=== PATIENT | female | born 1980 | race Caucasian/White ===

== ENCOUNTER 2022-01-31 11:34 | Observation (INO) ==
[2022-01-31 11:42] VITALS: BMI 28.3
--- NOTE | 2022-01-31 12:21 | DR.GENAD ---
HPI Time Seen Time Seen by Provider: 01/31/22 12:20 PCP Primary Care Physician: LORRIE Complaint/Symptoms Chief Complaint:: PATIENT STATES SHE WAS IN [place] ON A TRIP AND HAD AN AREA APPEAR TO THE LEFT SIDE OF HER NECK. PT. WENT TO A CLINIC THERE AND THEY TOLD HER SHE HAD A TUMOR THAT IS AFFECTING HER TRACHEA AND THAT SHE WAS SEPTIC. PT. STATES SHE HAD IV ANTIBIOTICS WHILE IN [facility]. PT. C/O PAIN AND SWELLING TO LEFT SIDE OF NECK. AREA STARTED DRAINING MONDAY. PT. STATES SHE WAS RUNNING A HIGH TEMPERATURE OF 104 AT ONSET OF SYMPTOMS. PT. STATES SHE HURTS ALL OVER AND JUST FEELS BAD. SHE C/O FATIGUE. COVID-19 Coronavirus risk:travel/contact w/high risk person: No Has patient experienced Coronavirus symptoms: Yes Coronavirus symptoms experienced: Fever Source History Provided: Patient Mode of Arrival Mode of Arrival: Ambulatory Timing Onset of Chief Complaint: 01/26/22 PMH PMH Past Medical History: Yes Past Medical History: Arthritis, Migraines, GERD, Hypertension and PUD Past Surgical History: Yes Surgical History: Hysterectomy and Other Past Surgical History Comment: RIGHT ANKLE/FOOT, BLADDER TACT Family History History of Family Medical Conditions: Yes Family Medical History: Cancer, [place] and Hypertension Social History Does patient currently use any type of tobacco product: Yes Have you used tobacco products in the last 12 months: Yes Type of Tobacco Use: Cigarettes Does any household member use tobacco: No Alcohol Use: None Do you use any recreational Drugs:: No Lives With: Family Lives Where: Home Travel Risk Coronavirus risk:travel/contact w/high risk person: No Has patient experienced Coronavirus symptoms: Yes Coronavirus symptoms experienced: Fever Infectious screening In the last 2 months have you had wt loss of >10#?: NO Have you had fever, night sweats or hemotysis?: No Have you traveled outside the country in the last 6 months?: No Isolation: Standard PE Vital Signs Vitals: Temperature 97.7 F Pulse Rate 77 Respiratory Rate 18 Blood Pressure 115/72 O2 Sat by Pulse Oximetry 94 ROR Labs Reviewed Result Diagrams: 01/31/22 12:30 01/31/22 12:12 Laboratory: 01/31/22 12:09 Neck Wound Gram Stain - Final WBC 5.0 X10^3/uL (3.6-10.0) 01/31/22 12:30 RBC 3.64 X10^6/uL (3.5-5.4) 01/31/22 12:30 Hgb 11.5 g/dL (12.0-16.0) L 01/31/22 12:30 Hct 32.9 % (36.0-47.0) L 01/31/22 12:30 MCV 90.4 fL (80.0-100.0) 01/31/22 12: MCH 31.5 pg (27.0-34.0) 01/31/22 12:30 MCHC 34.9 g/dL (33.0-35.0) 01/31/22 12: RDW 13.3 % (11.6-16.5) 01/31/22 12: Plt Count 496 X10^3/uL (150.0-450.0) H 01/31/22 12:30 MPV 6.6 fL (7.4-11.0) L 01/31/22 12:30 Neut % (Auto) 48.3 % (42.0-75.0) 01/31/22 12:30 Lymph % (Auto) 40.3 % (21.0-51.0) 01/31/22 12:30 Lander % (Auto) 6.7 % (0.0-13.0) 01/31/22 12: Eos % (Auto) 3.5 % (0.9-2.9) H 01/31/22 12:30 Baso % (Auto) 1.2 % (0.2-1.0) H 01/31/22 12:30 Neut # (Auto) 2.4 x10^3/uL (2.2-4.8) 01/31/22 12:30 Lymph # (Auto) 2.0 X10^3/uL (1.3-2.9) 01/31/22 12:30 Lander # (Auto) 0.3 x10^3/uL (0.3-0.8) 01/31/22 12:30 Eos # (Auto) 0.2 x10^3/uL (0.0-0.2) 01/31/22 12:30 Baso # (Auto) 0.1 X10^3/uL (0.0-0.1) 01/31/22 12:30 Absolute Nucleated RBC 0.0 /100WBC 01/31/22 12:30 Sodium 138 mmol/L (136-145) 01/31/22 12:12 Corrected Sodium TNP 01/31/22 12:12 Potassium 3.8 mmol/L (3.5-5.1) 01/31/22 12:12 Chloride 101 mmol/L (98-107) 01/31/22 12:12 Carbon Dioxide 27.8 mmol/L (21-32) 01/31/22 12:12 BUN 11 mg/dL (7-18) 01/31/22 12:12 Creatinine 1.01 mg/dL (0.55-1.02) 01/31/22 12:12 Est GFR (MDRD) Af Amer > 60 (>60) 01/31/22 12:12 Est GFR (MDRD) Non-Af > 60 (>60) 01/31/22 12:12 Glucose 92 mg/dL (65-99) 01/31/22 12:12 Lactic Acid 0.9 mmol/L (0.4-2.0) 01/31/22 12:12 Calcium 8.4 mg/dL (8.5-10.1) L 01/31/22 12:12 Corrected Calcium 9.1 mg/dL (8.5-10.1) 01/31/22 12:12 Total Bilirubin 0.10 mg/dL (0.2-1.0) L 01/31/22 12:12 AST 16 Units/L (15-37) 01/31/22 12:12 ALT 18 Units/L (12-78) 01/31/22 12:12 Alkaline Phosphatase 70 Units/L (46-116) 01/31/22 12:12 Total Protein 7.8 g/dL (6.4-8.2) 01/31/22 12:12 Albumin 3.1 g/dL (3.4-5.0) L 01/31/22 12:12 Globulin 4.7 g/dL (2.5-4.5) H 01/31/22 12:12 Albumin/Globulin Ratio 0.7 Ratio (1.1-2.1) L 01/31/22 12:12 Specimen Type Clean catch urine 01/31/22 14:28 Urine Color Yellow (YELLOW) 01/31/22 14:28 Urine Appearance Clear (CLEAR) 01/31/22 14:28 Urine pH 8.0 (5.0 - 8.0) 01/31/22 14:28 Ur Specific Orient 1.010 (1.000-1.030) 01/31/22 14:28 Urine Protein Negative (NEGATIVE) 01/31/22 14:28 Urine Glucose (UA) Negative (NEGATIVE) 01/31/22 14:28 Urine Ketones Negative (NEGATIVE) 01/31/22 14:28 Urine Blood Negative (NEGATIVE) 01/31/22 14:28 Urine Nitrite Negative (NEGATIVE) 01/31/22 14:28 Urine Bilirubin Negative (NEGATIVE) 01/31/22 14:28 Urine Urobilinogen 1+ (NORMAL) 01/31/22 14:28 Ur Leukocyte Esterase 1+ (NEGATIVE) 01/31/22 14:28 Urine RBC 0-2 /HPF (0-3) 01/31/22 14:28 Urine WBC 3-5 /HPF (0-5) 01/31/22 14:28 Ur Squamous Epith Cells Few /HPF (NEGATIVE) 01/31/22 14:28 Urine Bacteria Trace /HPF (NEGATIVE) 01/31/22 14:28 Ur Culture Indicated? No/not indicated 01/31/22 14:28 Urine Opiates Screen Negative (NEG=<300) 01/31/22 14:28 Urine Methadone Screen Negative (NEG=<300) 01/31/22 14:28 Ur Barbiturates Screen Negative (NEG=<200) 01/31/22 14:28 Ur Phencyclidine Scrn Negative (NEG=<25) 01/31/22 14:28 Ur Amphetamines Screen Negative (NEG=<1000) 01/31/22 14:28 U Benzodiazepines Scrn Positive (NEG=<200) A 01/31/22 14:28 Urine Cocaine Screen Positive (NEG=<300) A 01/31/22 14:28 U Marijuana (THC) Screen Negative (NEG=<50) 01/31/22 14:28 SARS-CoV-2 (PCR) Negative (NEGATIVE) 01/31/22 16:15 Opioid Opioid Risk Tool Age (Markus box if 16-45): Yes History of Preadolescent Sexual Abuse: No Total: 1 Total Score Risk Category: Low Risk Copyright: Baker LR predicting aberrant behaviors Discharge Plan Discharge Plan Patient Disposition: 01 HOME, SELF-CARE Condition: Stable Prescriptions: No Action clonazepam 0.5 mg tablet 1 tab PO QDAY PRN quetiapine 100 mg tablet 1 tab PO QPM levothyroxine [Synthroid] 25 mcg tablet 1 tab PO QDAY baclofen 10 mg tablet 1 tab PO TID nitrofurantoin monohyd/m-cryst 100 mg capsule 1 cap PO BID Health Concerns: Post Hospitalization: new medications and changes needed to prevent readmission or further decline. Pt educated and given instructions on all concerns. Plan of Treatment: Continue with present treatment and follow up plan. Pt is to keep follow up appointment as instructed and take medications as ordered. Orders to Discharge Patient Discharge Orders: Transfer (Routine); Ordered 01/31/22 Ordered By: ELIEZER GOYAL Follow ups/Referrals Follow ups/Referrals: RTEY ANDREW [Primary Care Provider] - 3 days Instructions Stand Alone Forms: Precautions for COVID19, [facility], Patient Portal, Social Distancing
[2022-01-31] MEDS ORDERED: NS 1,000 ML IV 1,000 ML ONE (12:37)
[2022-01-31] MEDS: NS 1,000 ML IV 1,000 ML IV SCH ×2 (12:43→20:39)
[2022-01-31 12:48] LABS: BASOPHILS # (AUTO) 0.1 X10^3/uL (0.0-0.1); BASOPHILS % (AUTO) 1.2 % (0.2-1.0); EOSINOPHILS # (AUTO) 0.2 x10^3/uL (0.0-0.2); EOSINOPHILS % (AUTO) 3.5 % (0.9-2.9); HEMATOCRIT 32.9 % (36.0-47.0); HEMOGLOBIN 11.5 g/dL (12.0-16.0); LYMPHOCYTES % (AUTO) 40.3 % (21.0-51.0); MEAN CORPUSCULAR HEMOGLOBIN 31.5 pg (27.0-34.0); MEAN CORPUSCULAR HGB CONC 34.9 g/dL (33.0-35.0); MEAN CORPUSCULAR VOLUME 90.4 fL (80.0-100.0); MEAN PLATELET VOLUME 6.6 fL (7.4-11.0); MONOCYTES # (AUTO) 0.3 x10^3/uL (0.3-0.8); MONOCYTES % (AUTO) 6.7 % (0.0-13.0); NEUTROPHILS # (AUTO) 2.4 x10^3/uL (2.2-4.8); NEUTROPHILS % (AUTO) 48.3 % (42.0-75.0); RED BLOOD COUNT 3.64 X10^6/uL (3.5-5.4); RED CELL DISTRIBUTION WIDTH 13.3 % (11.6-16.5)
[2022-01-31 12:57] LABS: ALANINE AMINOTRANSFERASE 18 Units/L (12-78); ALBUMIN 3.1 g/dL (3.4-5.0); ALKALINE PHOSPHATASE 70 Units/L (46-116); ASPARTATE AMINO TRANSFERASE 16 Units/L (15-37); BLOOD UREA NITROGEN 11 mg/dL (7-18); CALCIUM 8.4 mg/dL (8.5-10.1); CARBON DIOXIDE 27.8 mmol/L (21-32); CHLORIDE 101 mmol/L (98-107); COR CA(FOR HYPOALB) 9.1 mg/dL (8.5-10.1); CREATININE 1.01 mg/dL (0.55-1.02); SODIUM 138 mmol/L (136-145); TOTAL PROTEIN 7.8 g/dL (6.4-8.2); eGFR NON BLACK RACES > 60 (>60)
[2022-01-31 13:01] LABS: LACTIC ACID 0.9 mmol/L (0.4-2.0)
[2022-01-31 14:41] LABS: BILIRUBIN,URINE NEGATIVE (NEGATIVE); BLOOD/HEMOGLOBIN,URINE NEGATIVE (NEGATIVE); GLUCOSE, URINE NEGATIVE (NEGATIVE); KETONES,URINE NEGATIVE (NEGATIVE); LEUKOCYTE ESTERASE ,URINE 1+ (NEGATIVE); NITRITES,URINE NEGATIVE (NEGATIVE); PROTEIN,URINE NEGATIVE (NEGATIVE); UROBILINOGEN,URINE 1+ (NORMAL)
[2022-01-31 14:56] LABS: APPEARANCE,URINE CLEAR (CLEAR); BACTERIA,URINE TRACE /HPF (NEGATIVE); COLOR,URINE YELLOW (YELLOW); RBC,URINE 0-2 /HPF (0-3); SQUAMOUS EPITHELIAL CELL,UR FEW /HPF (NEGATIVE)
[2022-01-31] MEDS ORDERED: ZYVOX 600MG IV 600 MG/300 ML BAG IV ONE (18:28)
[2022-01-31] MEDS: ZYVOX 600MG IV 600 MG/300 ML BAG IV SCH ×2 (18:34→20:39)
[2022-01-31] MEDS ORDERED: ZOFRAN TAB 4 MG PO PRN (18:52)
[2022-01-31] MEDS ORDERED: MOTRIN TAB 600 MG PO PRN (18:52)
[2022-01-31] MEDS: D5 NS 1,000 ML IV 1,000 ML IV SCH (21:49)
[2022-02-01] MEDS: D5 NS 1,000 ML IV 1,000 ML IV SCH ×4 (04:05→23:11)
[2022-02-01] MEDS: NS 1,000 ML IV 1,000 ML IV SCH ×2 (05:02→13:42)
[2022-02-01 05:54] LABS: EOSINOPHILS # (AUTO) 0.2 x10^3/uL (0.0-0.2); EOSINOPHILS % (AUTO) 4.3 % (0.9-2.9); HEMOGLOBIN 11.1 g/dL (12.0-16.0); LYMPHOCYTES # (AUTO) 2.1 X10^3/uL (1.3-2.9); LYMPHOCYTES % (AUTO) 46.7 % (21.0-51.0); MEAN CORPUSCULAR HEMOGLOBIN 31.3 pg (27.0-34.0); MEAN CORPUSCULAR HGB CONC 34.6 g/dL (33.0-35.0); MEAN CORPUSCULAR VOLUME 90.5 fL (80.0-100.0); MEAN PLATELET VOLUME 6.7 fL (7.4-11.0); MONOCYTES # (AUTO) 0.3 x10^3/uL (0.3-0.8); MONOCYTES % (AUTO) 7.6 % (0.0-13.0); NEUTROPHILS # (AUTO) 1.8 x10^3/uL (2.2-4.8); NEUTROPHILS % (AUTO) 40.4 % (42.0-75.0); RED BLOOD COUNT 3.54 X10^6/uL (3.5-5.4); RED CELL DISTRIBUTION WIDTH 13.2 % (11.6-16.5); WHITE BLOOD COUNT 4.4 X10^3/uL (3.6-10.0)
[2022-02-01 06:02] LABS: ALANINE AMINOTRANSFERASE 13 Units/L (12-78); ALBUMIN 2.5 g/dL (3.4-5.0); ALKALINE PHOSPHATASE 57 Units/L (46-116); ASPARTATE AMINO TRANSFERASE 15 Units/L (15-37); BLOOD UREA NITROGEN 10 mg/dL (7-18); CALCIUM 7.9 mg/dL (8.5-10.1); CARBON DIOXIDE 24.6 mmol/L (21-32); CHLORIDE 108 mmol/L (98-107); COR CA(FOR HYPOALB) 9.1 mg/dL (8.5-10.1); CREATININE 0.79 mg/dL (0.55-1.02); SODIUM 140 mmol/L (136-145); TOTAL PROTEIN 6.6 g/dL (6.4-8.2); eGFR NON BLACK RACES > 60 (>60)
[2022-02-01] MEDS: ZYVOX 600MG IV 600 MG/300 ML BAG IV SCH ×2 (08:46→20:28)
--- NOTE | 2022-02-01 14:51 | DR.H&P ---
H&P - History & Physical for Day of: H&P Date: 01/31/22 - Chief Complaint Chief Complaint: MASS TO LEFT SIDE OF NECK - History of Present Illness History of Present Illness: PT IS A 41WF, ER ADMISSION AFTER PRESENTING WITH CO LEFT SIDE NECK SWELLING, MASS. PT REPORTS SHE WAS SEEN AT CLINIC PAST WEEK WITH FEVER & REPORTS OF TREATMENT WITH IV ANTIBIOTICS THEN. ONSET APPROX 01/26/22. PT ADMITTED FOR TREATMENT OF ACUTE ILLNESS. - Past Medical History Past Medical History: Hypertension, PUD, GERD, Arthritis, Migraines - Past Surgical History Surgical History: Hysterectomy, Ortho Surgery - Family History Family Medical History: Cancer - Social History Does patient currently use any type of tobacco product: No Have you used tobacco products in the last 12 months: No Type of Tobacco Use: None Does any household member use tobacco: No Alcohol Use: None Drug Use: None - Medications Home Medications: No Known Drug Allergies Allergy (Verified 01/31/22 11:42) CONTINUE taking the following medications baclofen 10 mg tablet 1 tab PO TID 01/31/22 [History] clonazepam 0.5 mg tablet 1 tab PO QDAY PRN 01/31/22 [History] levothyroxine 25 mcg tablet (Synthroid) 1 tab PO QDAY 01/31/22 [History] nitrofurantoin monohydrate/macrocrystals 100 mg capsule 1 cap PO BID 01/31/22 [History] quetiapine 100 mg tablet 1 tab PO QPM 01/31/22 [History] - Review of Systems Constitutional: Chills, Malaise Eyes: No Symptoms Reported ENT: Throat Swelling Respiratory: No Symptoms Reported Cardiovascular: No Symptoms Reported Gastrointestinal: Nausea Genitourinary: No Symptoms Reported Musculoskeletal: Neck Pain Skin: Wound Neurological: No Symptoms Reported - Physical Exam Vital Signs: Temperature 98.1 F Pulse Rate [Left Radial] 82 Pulse Rate 81 Respiratory Rate 20 Blood Pressure [Left Arm] 112/61 Blood Pressure 118/63 O2 Sat by Pulse Oximetry 96 Oriented: Normal Eyes: Normal Ear: Normal Nose: Normal Throat: Dry Respiratory: RLL Diminished, LLL Diminished Cardiovascular: Normal : Normal Auscultation: Bowel Sounds: Normal Palpation: Normal Tenderness: Normal Skin: Wound Musculoskeletal: Swelling, Tender (LEFT NECK) Psychiatric: Anxiety Affect: Anxious Speech Pattern: Clear, Appropriate - Assessment/Plan (1) Neck abscess Status: Acute Plan: ADMIT, WOUND AND BLOOD CULTURES OBTAINED ON ADMISSION. DR VILLALBA CONSULTING, IV ATBX THERAPY. AM LABS, RESP THERAPY PRN. VERIFY HOME MEDICATION. CT NECK WITH CONTRAST (2) Palpable mass of neck Status: Acute (3) Wound, open, neck Status: Acute - Allergies Allergies/Adverse Reactions: Allergies Allergy/AdvReac Type Severity Reaction Status Date / Time No Known Drug Allergies Allergy Verified 01/31/22 11:42
--- NOTE | 2022-02-01 16:08 | RAD ---
[email or web address] PAINSTUDYCHEST, 1 VIEWCOMPARISONNone availableTECHNIQUEChest radiographic imaging, AP portable projection, 1 imageFINDINGSNo cardiomegaly.No focal airspace disease.No pleural effusion.No pneumothorax.No acute osseous abnormality.IMPRESSIONNo imaging findings of acute cardiopulmonary disease.Electronically signed by: Gray Dexter (Feb 01, 2022 16:06:45)
[2022-02-02] MEDS: D5 NS 1,000 ML IV 1,000 ML IV SCH ×5 (03:08→19:47)
[2022-02-02 06:30] LABS: BASOPHILS # (AUTO) 0.1 X10^3/uL (0.0-0.1); EOSINOPHILS # (AUTO) 0.1 x10^3/uL (0.0-0.2); EOSINOPHILS % (AUTO) 2.4 % (0.9-2.9); HEMATOCRIT 34.1 % (36.0-47.0); HEMOGLOBIN 11.9 g/dL (12.0-16.0); LYMPHOCYTES # (AUTO) 2.1 X10^3/uL (1.3-2.9); LYMPHOCYTES % (AUTO) 34.3 % (21.0-51.0); MEAN CORPUSCULAR HEMOGLOBIN 31.3 pg (27.0-34.0); MEAN CORPUSCULAR HGB CONC 34.9 g/dL (33.0-35.0); MEAN CORPUSCULAR VOLUME 89.6 fL (80.0-100.0); MEAN PLATELET VOLUME 7.3 fL (7.4-11.0); MONOCYTES # (AUTO) 0.4 x10^3/uL (0.3-0.8); MONOCYTES % (AUTO) 6.2 % (0.0-13.0); NEUTROPHILS # (AUTO) 3.4 x10^3/uL (2.2-4.8); NEUTROPHILS % (AUTO) 56.1 % (42.0-75.0); RED BLOOD COUNT 3.81 X10^6/uL (3.5-5.4)
[2022-02-02 06:45] LABS: ALANINE AMINOTRANSFERASE 14 Units/L (12-78); ALBUMIN 2.7 g/dL (3.4-5.0); ALKALINE PHOSPHATASE 55 Units/L (46-116); ASPARTATE AMINO TRANSFERASE 16 Units/L (15-37); BLOOD UREA NITROGEN 5 mg/dL (7-18); CALCIUM 8.4 mg/dL (8.5-10.1); CARBON DIOXIDE 24.9 mmol/L (21-32); CHLORIDE 107 mmol/L (98-107); COR CA(FOR HYPOALB) 9.4 mg/dL (8.5-10.1); SODIUM 140 mmol/L (136-145); eGFR NON BLACK RACES > 60 (>60)
[2022-02-02] MEDS: ZYVOX 600MG IV 600 MG/300 ML BAG IV SCH ×2 (08:19→20:13)
[2022-02-02] MEDS ORDERED: XYLOCAINE 1 % (PLAIN) ONE ×2 (09:37→09:39)
[2022-02-03] MEDS: D5 NS 1,000 ML IV 1,000 ML IV SCH ×2 (03:50→10:48)
[2022-02-03 06:26] LABS: ALANINE AMINOTRANSFERASE 15 Units/L (12-78); ALBUMIN 2.7 g/dL (3.4-5.0); ALKALINE PHOSPHATASE 54 Units/L (46-116); ASPARTATE AMINO TRANSFERASE 16 Units/L (15-37); BLOOD UREA NITROGEN 3 mg/dL (7-18); CALCIUM 8.2 mg/dL (8.5-10.1); CARBON DIOXIDE 26.3 mmol/L (21-32); CHLORIDE 108 mmol/L (98-107); COR CA(FOR HYPOALB) 9.2 mg/dL (8.5-10.1); CREATININE 0.65 mg/dL (0.55-1.02); SODIUM 142 mmol/L (136-145); TOTAL PROTEIN 6.9 g/dL (6.4-8.2); eGFR NON BLACK RACES > 60 (>60)
[2022-02-03 06:30] LABS: BASOPHILS # (AUTO) 0.1 X10^3/uL (0.0-0.1); BASOPHILS % (AUTO) 1.4 % (0.2-1.0); EOSINOPHILS # (AUTO) 0.2 x10^3/uL (0.0-0.2); EOSINOPHILS % (AUTO) 2.4 % (0.9-2.9); HEMATOCRIT 33.4 % (36.0-47.0); HEMOGLOBIN 11.7 g/dL (12.0-16.0); LYMPHOCYTES # (AUTO) 2.2 X10^3/uL (1.3-2.9); LYMPHOCYTES % (AUTO) 34.7 % (21.0-51.0); MEAN CORPUSCULAR HEMOGLOBIN 31.2 pg (27.0-34.0); MEAN CORPUSCULAR HGB CONC 34.8 g/dL (33.0-35.0); MEAN CORPUSCULAR VOLUME 89.4 fL (80.0-100.0); MONOCYTES # (AUTO) 0.4 x10^3/uL (0.3-0.8); MONOCYTES % (AUTO) 6.7 % (0.0-13.0); NEUTROPHILS # (AUTO) 3.5 x10^3/uL (2.2-4.8); NEUTROPHILS % (AUTO) 54.8 % (42.0-75.0); RED BLOOD COUNT 3.74 X10^6/uL (3.5-5.4); RED CELL DISTRIBUTION WIDTH 12.9 % (11.6-16.5); WHITE BLOOD COUNT 6.4 X10^3/uL (3.6-10.0)
[2022-02-03 07:50] VITALS: BP 173/86
[2022-02-03] MEDS: ZYVOX 600MG IV 600 MG/300 ML BAG IV SCH (08:06)
== END 2022-02-03 11:05 | disposition home or self-care (01) ==
LOC: ER 11:34 → MED/SURG 11:34
PROVIDERS: ADMIT Internal Medicine; ATTEND Internal Medicine
DX: K21.9 Gastro-esophageal reflux disease without esophagitis; F14.90 Cocaine use, unspecified, uncomplicated; Z20.822 Contact with and (suspected) exposure to COVID-19; R94.31 Abnormal electrocardiogram [ECG] [EKG]; R22.1 Localized swelling, mass and lump, neck; I10 Essential (primary) hypertension; F13.90 Sedative, hypnotic, or anxiolytic use, unspecified, uncomplicated; L02.11 Cutaneous abscess of neck; R79.82 Elevated C-reactive protein (CRP)